=== PATIENT | male | born 1995 | race Caucasian/White ===

== ENCOUNTER 2017-07-02 23:24 | Emergency (ER) | payer OTHER ==
[2017-07-03] MEDS ORDERED: FAMOTIDINE INJ/PF 20 MG/2 ML SDV IV ONE (00:10)
[2017-07-03] MEDS ORDERED: ONDANSETRON HCL INJ/PF 4 MG/2 ML SDV IV ONE (00:10)
--- NOTE | 2017-07-03 00:19 | ER Document Report ---
ED General - General Chief Complaint: Abdominal Pain Stated Complaint: ABDOMINAL PAIN Time Seen by Provider: 07/02/17 23:43 Information source: Patient Notes: 22-year-old male with no reported past medical history presents with complaint of abdominal pain, nausea, vomiting. Patient states abdominal pain started 5 days prior to arrival. He describes it as cramping, intermittent and associated with meals. Patient had associated nausea, vomiting and bilateral low back pain. He states he had 3 episode of non-bilious non-bloody emesis. He denies prior similar symptoms. He denies sick contacts. He does not take medication currently but does take multiple supplements for working out. He denies any injury to his back but states he has had back pain in the past and has seen chiropractor for it. Denies fever, chills, chest pain, shortness of breath, dysuria, hematuria, penile discharge. TRAVEL OUTSIDE OF THE [place] IN LAST 30 DAYS: No - HPI Onset: Last week Onset/Duration: Gradual, Intermittent Quality of pain: No pain Pain Level: Denies Associated symptoms: Nausea, Vomiting. denies: Diarrhea Exacerbated by: Food Relieved by: Denies Similar symptoms previously: No Recently seen / treated by doctor: No - Related Data Allergies/Adverse Reactions: No Known Allergies Allergy (Unverified 01/31/16 13:03) Past Medical History - General Information source: Patient - Social History Smoking Status: Current Some Day Smoker Frequency of alcohol use: None Drug Abuse: None Lives with: Alone Family History: None. denies: Arthritis, CAD, COPD, CVA, DM, Hyperlipidemia, Hypertension, Malignancy, Thyroid Disfunction Patient has suicidal ideation: No Patient has homicidal ideation: No - Medical History Medical History: Negative Renal/ Medical History: Denies: Hx Peritoneal Dialysis Musculoskeltal Medical History: Reports Hx Musculoskeletal Trauma - Immunizations Immunizations up to date: Yes Hx Diphtheria, Pertussis, Tetanus Vaccination: Yes Review of Systems - Review of Systems Constitutional: See HPI. denies: Fever, Weakness EENT: denies: Throat pain, Difficulty swallowing Cardiovascular: denies: Chest pain, Palpitations Respiratory: denies: Cough Gastrointestinal: Abdominal pain - Intermittent abdominal pain, Nausea, Vomiting Genitourinary: Flank pain. denies: Dysuria, Discharge, Hematuria Musculoskeletal: Back pain Physical Exam - Vital signs Vitals: Temp Pulse Resp BP Pulse Ox 98.4 F 74 20 135/66 H 98 07/02/17 23:38 07/02/17 23:38 07/02/17 23:38 07/02/17 23:38 07/02/17 23:38 Interpretation: Normal. No: Hypotensive, Hypertensive, Febrile - General General appearance: Appears well, Alert In distress: None - HEENT Head: Normocephalic, Atraumatic Eyes: Normal Conjunctiva: Normal Pupils: PERRL Sinus: Normal Nasal: Normal Mouth/Lips: Normal Mucous membranes: Moist Pharynx: No: Peritonsillar abscess Neck: No: Anterior cervical chain - Abdominal Inspection: Normal Distension: No distension Bowel sounds: Normal Tenderness: Nontender. No: Tender, McBurney's point, Daniel's sign, Guarding, Rebound Organomegaly: No organomegaly. No: Hepatomegaly, Splenomegaly - Back Back: Normal, Tender. No: Vertebra tenderness - Neurological Neuro grossly intact: Yes Cognition: Normal Orientation: AAOx4 Kateryna Coma Scale Eye Opening: Spontaneous R[place]on Coma Scale Verbal: Oriented Richton Coma Scale Motor: Obeys Commands Kateryna Coma Scale Total: 15 Speech: Normal Cranial nerves: Normal Cerebellar coordination: Normal Motor strength normal: LUE, RUE, LLE, RLE Sensory: Normal - Psychological Associated symptoms: Normal affect, Normal mood Course - Re-evaluation Re-evalutation: 07/03/17 01:39 Laboratory 07/03/17 07/03/17 00:34 00:34 Sodium 144.4 Potassium 4.1 Chloride 104 Carbon Dioxide 30 Anion Gap 10 BUN 21 H Creatinine 1.23 Est GFR ( Amer) > 60 Est GFR (Non-Af Amer) > 60 Glucose 62 L Calcium 10.1 Total Bilirubin 0.5 Direct Bilirubin 0.3 Neonat Total Bilirubin Not Reportable Neonat Direct Bilirubin Not Reportable Neonat Indirect Bili Not Reportable AST 27 ALT 37 Alkaline Phosphatase 60 Total Protein 7.4 Albumin 4.5 Urine Color YELLOW Urine Appearance SLIGHTLY-CLOUDY Urine pH 6.0 Ur Specific Munday 1.020 Urine Protein NEGATIVE Urine Glucose (UA) NEGATIVE Urine Ketones NEGATIVE Urine Blood NEGATIVE Urine Nitrite NEGATIVE Urine Bilirubin NEGATIVE Urine Urobilinogen 2.0 H Ur Leukocyte Esterase NEGATIVE Urine WBC (Auto) 2 Urine RBC (Auto) 1 Urine Mucus (Auto) RARE Urine Ascorbic Acid NEGATIVE 22-year-old male with no reported past medical history presents with complaint of abdominal pain, nausea, vomiting. Upon arrival vitals were reviewed. Patient is afebrile, normotensive and not hypoxic. He does not appear toxic or dehydrated. He is in no acute distress. Patient receives Zofran during his ED course. He has had no further episodes of nausea, vomiting or abdominal pain. CMP shows no electrolyte abnormalities, normal liver function, normal kidney function. Urinalysis is without blood or evidence of infection. Patient was discharged home with a prescription for Bentyl and Zofran. - Vital Signs Vital signs: Temp Pulse Resp BP Pulse Ox 98.4 F 74 20 135/66 H 98 07/02/17 23:38 07/02/17 23:38 07/02/17 23:38 07/02/17 23:38 07/02/17 23:38 - Laboratory Result Diagrams: 07/03/17 00:34 Laboratory results interpreted by me: 07/03/17 07/03/17 00:34 00:34 BUN 21 H Glucose 62 L Urine Urobilinogen 2.0 H Discharge - Discharge Clinical Impression: Abdominal pain in male Condition: Good Disposition: HOME, SELF-CARE Instructions: Abdominal Pain ([facility]), Antispasmodics ([facility]) Prescriptions: Ondansetron [Zofran Odt 4 mg Tablet] 1 - 2 tab PO Q4HP PRN #10 tab.rapdis PRN Reason: Dicyclomine HCl [Bentyl 20 mg Tablet] 20 mg PO Q8H PRN #16 tablet PRN Reason: Abdominal Cramping
[2017-07-03 00:52] LABS: APPEARANCE,URINE SLIGHTLY-CLOUDY; BILIRUBIN,URINE NEGATIVE (NEGATIVE); COLOR,URINE YELLOW; GLUCOSE, URINE NEGATIVE (NEGATIVE); KETONES,URINE NEGATIVE (NEGATIVE); LEUKOCYTE ESTERASE,URINE NEGATIVE (NEGATIVE); NITRITE,URINE NEGATIVE (NEGATIVE); PROTEIN,URINE NEGATIVE (NEGATIVE)
[2017-07-03 01:00] LABS: ALANINE AMINOTRANSFERASE 37 U/L (21-72); ALBUMIN 4.5 g/dL (3.5-5.0); ALKALINE PHOSPHATASE 60 U/L (38-126); ANION GAP 10 (5-19); ASPARTATE AMINO TRANSFERASE 27 U/L (17-59); BILIRUBIN,DIRECT 0.3 mg/dL (0.0-0.4); BILIRUBIN,TOTAL 0.5 mg/dL (0.2-1.3); BLOOD UREA NITROGEN 21 mg/dL (7-20); CALCIUM 10.1 mg/dL (8.4-10.2); CARBON DIOXIDE 30 mmol/L (22-30); CHLORIDE 104 mmol/L (98-107); GLUCOSE 62 mg/dL (75-110); POTASSIUM 4.1 mmol/L (3.6-5.0); SODIUM 144.4 mmol/L (137-145); TOTAL PROTEIN 7.4 g/dL (6.3-8.2)
[2017-07-03 01:48] VITALS: BP 120/70
== END 2017-07-03 01:47 | disposition home or self-care (01) ==
LOC: ER 23:24
DX: R10.9 Unspecified abdominal pain (principal); R11.2 Nausea with vomiting, unspecified; M54.5 Low back pain; F17.200 Nicotine dependence, unspecified, uncomplicated
CPT/HCPCS: 99284; 96374; 96375; 36415; 80053; 81001; J2405; S0028